=== PATIENT | male | born 1945 | race Caucasian/White ===

== ENCOUNTER 2018-03-20 02:50 | Emergency (ER) | payer MEDICARE, BC ==
[~2018-03-20] VITALS: Ht 182.9 cm; Wt 86.4 kg
[2018-03-20 02:55] VITALS: BP 164/74
[2018-03-20] MEDS ORDERED: ZYLOPRIM100 MG PO (05:21)
[2018-03-20] MEDS ORDERED: BENICAR40 MG PO (05:21)
[2018-03-20] MEDS ORDERED: SYNTHROID112 MCG PO (05:22)
[2018-03-20] MEDS ORDERED: METOPROLOL SUCC25 M1 PO (05:22)
[2018-03-20] MEDS ORDERED: VASCEPA1 GM PO (05:23)
== END 2018-03-20 03:30 | disposition home or self-care (01) ==
LOC: ED 02:50
DX: S01.81XA Laceration without foreign body of other part of head, initial encounter (principal); S09.90XA Unspecified injury of head, initial encounter; W06.XXXA Fall from bed, initial encounter; Y92.003 Bedroom of unspecified non-institutional (private) residence as the place of occurrence of the external cause; I10 Essential (primary) hypertension

== ENCOUNTER 2018-08-25 09:30 | Outpatient (RCR) | payer MEDICARE, BC ==
[~2018-08-25 09:30] MED LIST: BENICAR40 MG PO; METOPROLOL SUCC25 M1 PO; SYNTHROID112 MCG PO; VASCEPA1 GM PO; ZYLOPRIM100 MG PO
== END 2018-08-25 10:00 | disposition home or self-care (01) ==
LOC: PT 09:30
DX: M25.552 Pain in left hip (principal); M54.2 Cervicalgia
CPT/HCPCS: G8978-GP; G8979-GP

== ENCOUNTER → 2018-10-15 | Outpatient (CLI) | payer MEDICARE, BC | LOC: RAD 08:47 | DX: D61.818 Other pancytopenia (principal) ==

== ENCOUNTER 2018-11-05 09:30 | Outpatient (RCR) | payer MEDICARE, BC | END 2018-12-16 | disposition still patient (30) | LOC: PT | DX: M54.2 Cervicalgia (principal) ==

== ENCOUNTER 2019-05-06 13:00 | Outpatient (RCR) | payer MEDICARE, BC | END 2019-05-17 | disposition still patient (30) | LOC: PT | DX: M54.2 Cervicalgia (principal) ==

== ENCOUNTER 2019-06-17 10:00 | Outpatient (RCR) | payer MEDICARE, BC | END 2019-06-17 10:30 | disposition still patient (30) | LOC: PT 10:00 | DX: M54.2 Cervicalgia (principal) ==

== ENCOUNTER → 2019-09-09 | Day surgery (SDC) | payer MEDICARE, BC | LOC: MSO 08:13 | DX: Z12.11 Encounter for screening for malignant neoplasm of colon (principal); K57.90 Diverticulosis of intestine, part unspecified, without perforation or abscess without bleeding; I10 Essential (primary) hypertension; E03.9 Hypothyroidism, unspecified; K21.9 Gastro-esophageal reflux disease without esophagitis; Z85.46 Personal history of malignant neoplasm of prostate; Z79.899 Other long term (current) drug therapy; M10.9 Gout, unspecified; Z86.73 Personal history of transient ischemic attack (TIA), and cerebral infarction without residual deficits; Z88.8 Allergy status to other drugs, medicaments and biological substances | CPT/HCPCS: G0121; 00812; J2704; J7120 ==

== ENCOUNTER → 2020-02-19 | Outpatient (CLI) | payer MEDICARE, BC | LOC: LAB 10:18 | DX: M79.10 Myalgia, unspecified site (principal); R06.02 Shortness of breath; Z20.828 Contact with and (suspected) exposure to other viral communicable diseases ==

== ENCOUNTER → 2020-03-01 | Outpatient (CLI) | payer MEDICARE, BC | LOC: RAD 13:02 | PROVIDERS: Internal Medicine | DX: I26.99 Other pulmonary embolism without acute cor pulmonale (principal); J18.1 Lobar pneumonia, unspecified organism; J90 Pleural effusion, not elsewhere classified; R91.1 Solitary pulmonary nodule | CPT/HCPCS: Q9967 ==

== ENCOUNTER → 2020-06-05 | Outpatient (CLI) | payer MEDICARE, BC ==
[2020-06-05 14:58] LABS: HEMATOCRIT 38.6 % (42.0-52.0); HEMOGLOBIN 13.5 g/dL (13.5-18.0); MEAN CELL VOLUME 89 fl (78-100); MEAN CORPUSCULAR HEMOGLOBIN 31 pg (27-31); MEAN CORPUSCULAR HGB CONC 35 g/dL (33-37); MEAN PLATELET VOLUME 11.5 fl (7.4-10.4); PLATELET COUNT 105 K/mm3 (130-400); RED BLOOD COUNT 4.32 M/mm3 (4.20-5.60); RED CELL DISTRIBUTION WIDTH 13.1 % (11.5-14.5)
[2020-06-05 15:06] LABS: BAND 2 % (0-10); LYMPHOCYTE 53 % (20-51); MONOCYTE 13 % (3-10); NEUTROPHILS 30 % (42-75)
== END ==
LOC: LAB 13:51
PROVIDERS: Internal Medicine
DX: D61.818 Other pancytopenia (principal)

== ENCOUNTER → 2020-06-06 | Outpatient (CLI) | payer MEDICARE, BC | LOC: RAD 09:00 | DX: D61.818 Other pancytopenia (principal); Z90.79 Acquired absence of other genital organ(s) | CPT/HCPCS: Q9967 ==

== ENCOUNTER → 2020-06-26 | Outpatient (CLI) | payer MEDICARE, BC | LOC: LAB 11:41 | DX: Z20.828 Contact with and (suspected) exposure to other viral communicable diseases (principal) ==

== ENCOUNTER → 2020-06-29 | Day surgery (SDC) | payer MEDICARE, BC | LOC: MSO 07:31 | DX: D12.0 Benign neoplasm of cecum (principal); D12.2 Benign neoplasm of ascending colon; D12.8 Benign neoplasm of rectum; E03.9 Hypothyroidism, unspecified; K21.9 Gastro-esophageal reflux disease without esophagitis; I10 Essential (primary) hypertension; Z85.46 Personal history of malignant neoplasm of prostate; Z90.79 Acquired absence of other genital organ(s); Z86.73 Personal history of transient ischemic attack (TIA), and cerebral infarction without residual deficits; M10.9 Gout, unspecified | CPT/HCPCS: 00811; J2704; J7120 ==

== ENCOUNTER 2020-11-13 16:20 | Emergency (ER) | payer MEDICARE, BC ==
[2020-11-13] MEDS ORDERED: LEVOTHYROXINE125 MCG PO (16:32)
[2020-11-13] MEDS ORDERED: LOPRESSOR 550 MG/TAB PO (16:32)
[2020-11-13] MEDS ORDERED: XARELTO20 MG PO (16:32)
[2020-11-13 17:51] VITALS: BP 154/72
== END 2020-11-13 17:51 | disposition home or self-care (01) ==
LOC: ED 16:20
DX: S09.90XA Unspecified injury of head, initial encounter (principal); S00.03XA Contusion of scalp, initial encounter; I10 Essential (primary) hypertension; E07.9 Disorder of thyroid, unspecified; M10.9 Gout, unspecified; Z79.01 Long term (current) use of anticoagulants; Z79.899 Other long term (current) drug therapy; Z79.890 Hormone replacement therapy; W01.198A Fall on same level from slipping, tripping and stumbling with subsequent striking against other object, initial encounter; Y92.094 Garage of other non-institutional residence as the place of occurrence of the external cause

== ENCOUNTER 2021-01-28 10:03 | Emergency (ER) | payer MEDICARE, BC ==
[~2021-01-28 10:03] MED LIST changes: +LEVOTHYROXINE125 MCG PO; +LOPRESSOR 550 MG/TAB PO; +XARELTO20 MG PO
[2021-01-28 10:48] VITALS: BP 145/72
== END 2021-01-28 10:48 | disposition home or self-care (01) ==
LOC: ED 10:03
DX: S30.861A Insect bite (nonvenomous) of abdominal wall, initial encounter (principal); I48.91 Unspecified atrial fibrillation; E78.5 Hyperlipidemia, unspecified; Z79.01 Long term (current) use of anticoagulants; Z88.8 Allergy status to other drugs, medicaments and biological substances; Z79.899 Other long term (current) drug therapy; W57.XXXA Bitten or stung by nonvenomous insect and other nonvenomous arthropods, initial encounter

== ENCOUNTER 2021-07-24 09:02 | Outpatient (RCR) | payer MEDICARE, BC | END 2021-08-13 | disposition home or self-care (01) | LOC: PT | DX: M25.562 Pain in left knee (principal) ==

== ENCOUNTER → 2021-10-29 | Outpatient (CLI) | payer MEDICARE, BC | LOC: RAD 10-25 09:30 | DX: S83.242A Other tear of medial meniscus, current injury, left knee, initial encounter (principal); S83.422A Sprain of lateral collateral ligament of left knee, initial encounter; M17.12 Unilateral primary osteoarthritis, left knee ==

== ENCOUNTER → 2022-03-06 | Day surgery (SDC) | payer MEDICARE, BC | LOC: MSO 08:12 | DX: H25.12 Age-related nuclear cataract, left eye (principal) | CPT/HCPCS: 00142; J0171; J2250; J2405; V2787 ==

== ENCOUNTER → 2022-09-06 | Outpatient (CLI) | payer MEDICARE, BC | LOC: RAD 09:58 | DX: Z13.6 Encounter for screening for cardiovascular disorders (principal); Z87.891 Personal history of nicotine dependence ==

== ENCOUNTER → 2022-09-10 | Outpatient (RCR) | payer MEDICARE, BC | LOC: PT | DX: R54 Age-related physical debility (principal); R26.89 Other abnormalities of gait and mobility ==

== ENCOUNTER → 2022-10-15 | Outpatient (CLI) | payer MEDICARE, BC | LOC: RAD 12:57 | DX: M47.27 Other spondylosis with radiculopathy, lumbosacral region (principal); M51.17 Intervertebral disc disorders with radiculopathy, lumbosacral region; M48.07 Spinal stenosis, lumbosacral region ==

== ENCOUNTER 2023-11-25 13:00 | Outpatient (RCR) | payer MEDICARE, BC | END 2023-12-12 | LOC: PT | DX: M25.562 Pain in left knee (principal) ==

== ENCOUNTER 2024-03-17 09:31 | Outpatient (RCR) | payer MEDICARE, BC | END 2024-04-12 | disposition home or self-care (01) | LOC: PT | DX: Z98.890 Other specified postprocedural states (principal) ==

== ENCOUNTER 2024-04-26 11:01 | Outpatient (RCR) | payer MEDICARE, BC | END 2024-05-13 | disposition home or self-care (01) | LOC: PT | DX: M54.2 Cervicalgia (principal) ==